=== PATIENT | male | born 1990 | race Caucasian/White ===

== ENCOUNTER 2018-01-23 08:42 | Emergency (ER) | payer OTHER ==
[~2018-01-23] VITALS: Ht 182.9 cm; Wt 108.9 kg
[2018-01-23 08:50] VITALS: BP 157/103
[2018-01-23] MEDS ORDERED: ZPAK PO (09:19)
[2018-01-23] MEDS ORDERED: PREDNISONE 20 M20 M1 PO (09:19)
== END 2018-01-23 09:30 | disposition home or self-care (01) ==
LOC: M.ERS 08:42
DX: J40 Bronchitis, not specified as acute or chronic (principal)

== ENCOUNTER 2018-12-23 13:21 | Emergency (ER) | payer OTHER ==
[~2018-12-23] VITALS: Ht 182.9 cm; Wt 113.4 kg
[~2018-12-23 13:21] MED LIST: PREDNISONE 20 M20 M1 PO; ZPAK PO
[2018-12-23] MEDS ORDERED: NOHOMEMEDICATIONS (13:36)
[2018-12-23] MEDS ORDERED: NORCO 5-325 TA1 EAC1 PO (14:23)
[2018-12-23 15:00] VITALS: BP 124/72
== END 2018-12-23 15:03 | disposition home or self-care (01) ==
LOC: M.ERS 13:21
DX: S82.891A Other fracture of right lower leg, initial encounter for closed fracture (principal); X50.1XXA Overexertion from prolonged static or awkward postures, initial encounter; Y92.89 Other specified places as the place of occurrence of the external cause; Y93.89 Activity, other specified; Y99.8 Other external cause status